=== PATIENT | female | born 1980 | race Caucasian/White ===

== ENCOUNTER 2017-04-11 23:36 | Emergency (ER) | payer OTHER ==
[~2017-04-11] VITALS: Ht 160 cm; Wt 88.5 kg
[~2017-04-11 23:36] MED LIST: ALPR.5 PO; AMOCLA875 PO; CEPH500 PO; CODACE30 PO; Cipro500 MG PO; DOXY100 PO; HYDACE5 PO; NAPR550 PO; NEOCOLOTSU AU; Naprosyn500 MG PO; ONDA4ODT MM; OXYACE5T; OXYACE5T PO; PANT40 PO; PROM25 PO; RXHYDACE PO; RXLORA1 PO; RXNAPNA550 PO; RXOXYACE PO; SULTRIDS PO; Veetids 500500 MG PO; Zofran4 MG PO
[2017-04-12 00:52] LABS: Hematocrit 44.9 % (33.0-51.0); Mean Corpuscular HGB 28.8 pg (26.0-34.0); Mean Corpuscular HGB Conc 33.4 g/dL (31.5-36.5); Mean Corpuscular Volume 86 fL (80-100); Mean Platelet Volume 8.7 fL (9.1-12.4); Platelet Count 354 K/mm3 (150-400); RDW Standard Deviation 40.4 fL (35.1-46.3); White Blood Cell Count 14.66 K/mm3 (4.00-11.30)
[2017-04-12 01:07] LABS: Alanine Aminotransfer (ALT/SGP 47 U/L (12-78); Alk Phos 77 U/L (50-136); Anion Gap 8 mmol/L (6-16); Aspartate Aminotrans (AST/SGOT 25 U/L (12-37); Bilirubin, Total 0.3 mg/dL (0.1-1.0); Blood Urea Nitrogen 13 mg/dL (8-24); Bun/Creatinine Ratio 17.5 (12.0-20.0); CO2, Blood 25 mmol/L (21-32); Calcium, Blood 9.1 mg/dL (8.5-10.1); Chloride, Blood 104 mmol/L (98-108); Creatinine, Blood 0.74 mg/dL (0.40-1.00); Globulin, Blood 4.2 g/dL (2.2-4.0); Glomerular Filtration Rate >60 (60-); Glucose, Blood 123 mg/dL (70-99); Potassium, Blood 3.7 mmol/L (3.5-5.5); Sodium, Blood 137 mmol/L (136-145); Total Protein, Blood 8.2 g/dL (6.4-8.2); Troponin I <0.015 ng/mL (0.000-0.040)
[2017-04-12 01:39] LABS: BASOPHILS ABSOLUTE MAN 0.14 K/mm3 (0.00-0.23); BASOPHILS PERCENT MAN 1 % (0-2); EOSINOPHILS ABSOLUTE MAN 0.29 K/mm3 (0.00-0.68); EOSINOPHILS PERCENT MAN 2 % (0-6); LYMPHOCYTES ABSOLUTE MAN 5.71 K/mm3 (0.84-5.20); LYMPHOCYTES PERCENT MAN 39 % (21-46); MONOCYTES ABSOLUTE MAN 0.43 K/mm3 (0.16-1.47); MONOCYTES PERCENT MAN 3 % (4-13); NEUTROPHILS ABSOLUTE MAN 8.06 K/mm3 (1.96-9.15); SEG NEUTROPHILS PERCENT MAN 55 % (41-73); TOTAL CELLS COUNTED 100
[2018-01-05] MEDS ORDERED: LEVSOD50 PO (13:58)
[2018-01-05] MEDS ORDERED: VITAMIN D-32000 UNIT PO (13:58)
[2018-01-05] MEDS ORDERED: MAGOXI400 PO (13:59)
[2018-01-05] MEDS ORDERED: PROGESTERONE CREAM (13:59)
== END 2017-04-12 02:54 | disposition home or self-care (01) ==
LOC: ER 23:36
PROVIDERS: Emergency Medicine
DX: R07.9 Chest pain, unspecified (principal); F17.210 Nicotine dependence, cigarettes, uncomplicated; G43.909 Migraine, unspecified, not intractable, without status migrainosus; Z88.8 Allergy status to other drugs, medicaments and biological substances; Z90.89 Acquired absence of other organs
CPT/HCPCS: 36415; 71046; 80053; 83690; 84484; 85025; 85379; 93005; 93010; 96374; 99284; J1885

== ENCOUNTER 2020-05-16 08:10 | Day surgery (SDC) | payer BC ==
[~2020-05-16] VITALS: Ht 160 cm; Wt 98.7 kg
[~2020-05-16 08:10] MED LIST changes: +LEVSOD50 PO; +MAGOXI400 PO; +METFORMIN HCL1000 MG PO; +PROGESTERONE CREAM; +VITAMIN D-32000 UNIT PO
[2020-05-16] MEDS ORDERED: PROG100 PO (08:58)
[2020-05-16] MEDS ORDERED: ATOR20 PO (08:59)
--- NOTE | 2020-05-16 10:25 | NUR ---
05/16/20 1025 Mariah Orlando 4O MG EPI USED TO SOAK PLEDGETS PER ORDER.
== END 2020-05-16 11:44 | disposition home or self-care (01) ==
LOC: ORSCSDS 08:10
PROVIDERS: Otolaryngology
PROC: 0CBM8ZX Excision of Pharynx, Via Natural or Artificial Opening Endoscopic, Diagnostic (ICD-10-PCS; principal; 2020-05-16 09:30)
DX: D10.1 Benign neoplasm of tongue (principal); D10.5 Benign neoplasm of other parts of oropharynx; F17.210 Nicotine dependence, cigarettes, uncomplicated
CPT/HCPCS: 88305; A9270; J0171; J1100; J2001; J2250; J2270; J2310; J2405; J2704; J3010; J7120

== ENCOUNTER → 2020-12-05 | Outpatient (CLI) | payer BC ==
[~2020-12-05] MED LIST changes: +ATOR20 PO; +PROG100 PO
== END ==
LOC: LAB SHORT 10:00 → LAB 10:00
DX: L08.9 Local infection of the skin and subcutaneous tissue, unspecified (principal)
CPT/HCPCS: 87070; 87075; 87076; 87205

== ENCOUNTER → 2022-07-29 | Outpatient (CLI) | payer BC | END | disposition home or self-care (01) | LOC: LAB 09:30 → LAB SHORT 09:30 | DX: R30.0 Dysuria (principal) | CPT/HCPCS: 87086 ==